=== PATIENT | male | born 1980 | race Caucasian/White ===

== ENCOUNTER 2016-08-27 07:38 | Emergency (ER) | payer SELFPAY ==
[2016-08-27 07:47] VITALS: PULSE 98
[2016-08-27] MEDS ORDERED: DUONEB 0.5-3 MG/3 ml Neb IH ONE ×3 (07:51→08:15)
--- NOTE | 2016-08-27 07:55 | ERPHSYRPT ---
- History of Present Illness Time Seen by Provider: 08/27/16 07:51 Source: patient Exam Limitations: no limitations Patient Subjective Stated Complaint: states that he has had productive cough over the last few days that is so forceful it is causing vomiting - denies pain Triage Nursing Assessment: ambulatory to treatment Physician History: This 36-year-old white male with history of depression and neuropathy arrives with complaint of a cough for 2 days. He is not having any fevers no nausea no vomiting he is coughing up yellow sputum. Past medical history includes depression neuropathy. Social history positive for tobacco use. Timing/Duration: day(s) Cough Quality/Degree: productive cough Possible Cause: no prior episodes Modifying Factors: Improves With: nothing Associated Symptoms: cough, facial pain, No fever, No chills, No chest pain/ soreness, No dizziness, No earache, No muscle aches, No nasal drainage, No shortness of breath International travel in last 2 weeks: No Allergies/Adverse Reactions: No Known Drug Allergies Allergy (Verified 08/27/16 07:43) Home Medications: Tramadol HCl 50 mg [Ultram 50 mg] 50 mg PO QID 08/27/16 [History] Hx Tetanus, Diphtheria Vaccination/Date Given: No Hx Influenza Vaccination/Date Given: No Hx Pneumococcal Vaccination/Date Given: No Immunizations Up to Date: Yes - Review of Systems Constitutional: No Fever, No Chills Eyes: No Symptoms Ears, Nose, & Throat: No Symptoms Respiratory: Cough, No Cyanosis, No Dyspnea, No Dyspnea on Exertion (EARL), No Stridor, No Wheezing Cardiac: No Chest Pain, No Edema, No Syncope Abdominal/Gastrointestinal: No Abdominal Pain, No Nausea, No Vomiting, No Diarrhea Genitourinary Symptoms: No Dysuria Musculoskeletal: No Back Pain, No Neck Pain Skin: No Rash Neurological: No Dizziness, No Focal Weakness, No Sensory Changes Psychological: No Symptoms Endocrine: No Symptoms All Other Systems: Reviewed and Negative - Past Medical History Pertinent Past Medical History: Yes Neurological History: No Pertinent History ENT History: No Pertinent History Cardiac History: No Pertinent History Respiratory History: No Pertinent History Endocrine Medical History: No Pertinent History Musculoskeletal History: No Pertinent History GI Medical History: No Pertinent History History: No Pertinent History Psycho-Social History: Depression Male Reproductive Disorders: No Pertinent History Other Medical History: Neuropathy - Past Surgical History Past Surgical History: No Neuro Surgical History: No Pertinent History Cardiac: No Pertinent History Respiratory: No Pertinent History Gastrointestinal: No Pertinent History Genitourinary: No Pertinent History Musculoskeletal: No Pertinent History Male Surgical History: No Pertinent History - Social History Smoking Status: Current every day smoker How long have you smoked: 15 Exposure to second hand smoke: No Drug Use: none Patient Lives Alone: No - Nursing Vital Signs Nursing Vital Signs: Initial Vital Signs Temperature 98.5 F Temperature Source Oral Pulse Rate 98 Respiratory Rate 16 Blood Pressure [] 129/77 Pain Intensity 0 - Physical Exam General Appearance: mild distress Eye Exam: PERRL/EOMI, eyes nml inspection Ears, Nose, Throat Exam: normal ENT inspection, TMs normal, pharynx normal, moist mucous membranes Neck Exam: normal inspection, non-tender, supple, full range of motion Respiratory Exam: diminished breath sounds, No chest tenderness Cardiovascular Exam: regular rate/rhythm, normal heart sounds Gastrointestinal/Abdomen Exam: soft, No tenderness Back Exam: normal inspection, No CVA tenderness, No vertebral tenderness Extremity Exam: normal inspection, normal range of motion Neurologic Exam: alert, oriented x 3, cooperative, normal mood/affect, sensation nml, No motor deficits Skin Exam: normal color, warm, dry, No rash Lymphatic Exam: No adenopathy SpO2 Interpretation: normal (9C9) SpO2: 99 Oxygen Delivery: Room Air - Course Nursing assessment & vital signs reviewed: Yes - Radiology Exams Chest X-ray Interpretation: Discussed w/ radiologist, Negative, No Pneumonia, No Pneumothorax Ordered Tests: Active Orders 24 hr Category Date Time Status EKG-ER Only STAT Care 08/27/16 07:59 Inactive IV Insertion STAT Care 08/27/16 07:59 Inactive Oxygen-ED Only NASAL CANNULA 4 lpm Care 08/27/16 07:59 Inactive CHEST 1 VIEW (PORTABLE) Stat Exams 08/27/16 07:51 Completed CBC W DIFF Stat Lab 08/27/16 07:59 Stop Req CMP Stat Lab 08/27/16 07:59 Stop Req TROPONIN Stat Lab 08/27/16 08:01 Ordered VENOUS BLOOD GAS Urgent Lab 08/27/16 07:59 Stop Req Respiratory Nebulizer STAT RT 08/27/16 08:04 Completed Medication Summary Discontinued Medications Generic Name Dose Route Start Last Admin Trade Name Freq PRN Reason Stop Dose Admin Albuterol/Ipratropium 3 ml 08/27/16 07:51 08/27/16 08:23 Duoneb 0.5-3 Mg/3 Ml Neb IH 08/27/16 07:52 3 ml STAT ONE Administration Albuterol/Ipratropium 3 ml 08/27/16 08:04 08/27/16 08:08 Duoneb 0.5-3 Mg/3 Ml Neb IH 08/27/16 08:05 Not Given STAT ONE Albuterol/Ipratropium Confirm 08/27/16 08:15 Duoneb 0.5-3 Mg/3 Ml Neb Administered 08/27/16 08:16 Dose 3 ml IH .STK-MED ONE Methylprednisolone Sodium Succinate 125 mg 08/27/16 07:59 08/27/16 08:04 Solu-Medrol 125 Mg IV 08/27/16 08:00 Not Given STAT ONE - Progress Progress: improved Air Movement: fair Progress Note: 08/27/16 08:38 Patient's chest x-ray no pneumonia is no pneumothorax no acute process noted. Patient better after receiving DuoNeb treatment. Will go ahead and write for tapering dose of prednisone, Zithromax, albuterol inhaler. - Departure Time of Disposition: 08:39 Departure Disposition: Home Clinical Impression: Bronchitis with bronchospasm Condition: Fair Critical Care Time: No Instructions: Cough -- Adult Additional Instructions: Return home. Plenty of fluids. Zithromax [id number] as directed. Tapering dose prednisone as directed. Albuterol inhaler 2 puffs every 4 hours as needed. [id number] cough syrup as needed. Follow-up with your family doctor if symptoms are worse, no better in 48 hours, or persist longer than one week. Stop smoking. Return for acute distress or for severe symptoms Prescriptions: Albuterol Common Canister [Proventil Common Canister] 2 puff IH Q4-6HPRN PRN #1 puff PRN Reason: cough, wheezing Azithromycin 250 mg [Zithromax 250 MG TABLET] 0 mg PO ZPACK #6 tablet
[2016-08-27] MEDS ORDERED: solu-MEDROL 125 MG IV ONE (07:59)
[2016-08-27 08:33] VITALS: BP 129/77
--- NOTE | 2016-08-27 08:35 | XRAY ---
Indication: Cough. Comparison: January 06, 2016 Portable chest again demonstrates normal heart, lungs, and bony thorax.
[2016-08-27 08:36] VITALS: O2SAT 99
== END 2016-08-27 08:51 ==
LOC: ED 07:38
DX: J20.9 Acute bronchitis, unspecified (principal); R05 Cough; F17.200 Nicotine dependence, unspecified, uncomplicated
CPT/HCPCS: 71010; 94640; 99283

== ENCOUNTER 2017-03-28 21:20 | Emergency (ER) | payer SELFPAY ==
[2017-03-28 21:29] VITALS: O2SAT 98
--- NOTE | 2017-03-28 21:42 | ERPHSYRPT ---
- History of Present Illness Time Seen by Provider: 03/28/17 21:24 Source: patient Exam Limitations: no limitations Patient Subjective Stated Complaint: pt states yesterday he was attempting to jump over a ditch, missing the landing, and rolling his left ankle. pt states the pain has progressively increased this evening, states pain is "shooting" up his leg Triage Nursing Assessment: pt is aox3, pupils perrl, ambulatory to cot with a limping gait, resps are easy and non labored, skin is pink warm and dry, swelling is noted to the left distal ankle, pedal pulses are strong and equal bilaterally, cap refill 3 secs,rom is not limited Physician History: Pt. is homeless and has been ambulatory since injury 2 days ago. Method of Injury: twisted Occurred: days ago (2) Quality: constant, sharpness Severity of Pain-Max: moderate Severity of Pain-Current: moderate Modifying Factors: Improves With: movement Associated Symptoms: none Allergies/Adverse Reactions: No Known Drug Allergies Allergy (Verified 03/28/17 21:32) Hx Tetanus, Diphtheria Vaccination/Date Given: No Hx Influenza Vaccination/Date Given: No Hx Pneumococcal Vaccination/Date Given: No Immunizations Up to Date: Yes - Review of Systems Constitutional: No Symptoms Eyes: No Symptoms Ears, Nose, & Throat: No Symptoms Respiratory: No Symptoms Cardiac: No Symptoms Abdominal/Gastrointestinal: No Symptoms Genitourinary Symptoms: No Symptoms Musculoskeletal: Joint Pain, Joint Swelling Skin: No Symptoms Neurological: No Symptoms Psychological: No Symptoms Endocrine: No Symptoms Hematologic/Lymphatic: No Symptoms Immunological/Allergic: No Symptoms - Past Medical History Pertinent Past Medical History: Yes Neurological History: No Pertinent History ENT History: No Pertinent History Cardiac History: No Pertinent History Respiratory History: No Pertinent History Endocrine Medical History: No Pertinent History Musculoskeletal History: No Pertinent History GI Medical History: No Pertinent History History: No Pertinent History Psycho-Social History: Depression Male Reproductive Disorders: No Pertinent History Other Medical History: Neuropathy - Past Surgical History Past Surgical History: No Neuro Surgical History: No Pertinent History Cardiac: No Pertinent History Respiratory: No Pertinent History Gastrointestinal: No Pertinent History Genitourinary: No Pertinent History Musculoskeletal: No Pertinent History Male Surgical History: No Pertinent History - Social History Smoking Status: Current every day smoker How long have you smoked: 15 Exposure to second hand smoke: No Drug Use: none Patient Lives Alone: Yes - Nursing Vital Signs Nursing Vital Signs: Initial Vital Signs Temperature 98.9 F 03/28/17 21:24 Pulse Rate 100 H 03/28/17 21:24 Respiratory Rate 20 03/28/17 21:24 Blood Pressure 144/80 03/28/17 21:24 O2 Sat by Pulse Oximetry 98 03/28/17 21:24 Pain Scale Pain Intensity 10 - Physical Exam General Appearance: mild distress Eyes, Ears, Nose, Throat Exam: normal ENT inspection, pharynx normal Neck Exam: normal inspection, non-tender, supple, full range of motion Cardiovascular/Respiratory Exam: chest non-tender, normal breath sounds, heart sounds normal, no respiratory distress Gastrointestinal/Abdominal Exam: non-tender, soft, no organomegaly Hips Exam: bilateral: non-tender, normal inspection, normal range of motion, no evidence of injury Legs Exam: bilateral leg: non-tender, normal inspection, normal range of motion , no evidence of injury Knees Exam: bilateral knee: non-tender, normal inspection, normal range of motion, no evidence of injury Ankle Exam: right ankle: non-tender, normal inspection, normal range of motion, no evidence of injury, left ankle: bone tenderness, deformity, ecchymosis, joint effusion, limited range of motion, pain, soft tissue tenderness Foot Exam: right foot: non-tender, normal inspection, normal range of motion, no evidence of injury, left foot: pain, soft tissue tenderness, swelling Neuro/Tendon Exam: normal sensation, normal tendon functions, responds to pain Mental Status Exam: alert, oriented x 3, cooperative Skin Exam: normal color, warm, dry SpO2 Interpretation: normal SpO2: 98 Oxygen Delivery: Room Air - Course Nursing assessment & vital signs reviewed: Yes - Radiology Exams Ankle X-ray Interpretation: Interpreted by me, Reviewed by me, Other (chips noted distal to fibula only in 1/3 images. May be ligamentous, but will place in boot and F/U Ortho.) Ordered Tests: Active Orders 24 hr Category Date Time Status Ice Pack, Apply PRN Care 03/28/17 21:25 Active ANKLE (3 VIEWS) Stat Exams 03/28/17 Taken - Progress Progress: improved Discussed with : Susanne Will see patient in: office (Ortho 1 week) Counseled pt/family regarding: diagnosis, need for follow-up, rad results - Departure Time of Disposition: 22:00 Departure Disposition: Home Clinical Impression: Sprained ankle Qualifiers: Encounter type: initial encounter Involved ligament of ankle: tibiofibular ligament Laterality: left Qualified Code(s): S93.432A - Sprain of tibiofibular ligament of left ankle, initial encounter Condition: Stable Critical Care Time: No Referrals: LIBAN GANN [Primary Care Provider] -
[2017-03-28] MEDS ORDERED: Naprosyn 500 MG PO ONE (22:07)
[2017-03-28 22:49] VITALS: BP 136/80; PULSE 80
--- NOTE | 2017-03-29 09:17 | XRAY ---
Indication: Pain following injury. Comparison: None 3 views of the left ankle demonstrates 2 small irregular ossifications interposed between the lateral malleolus and talus with adjacent soft tissue swelling concerning for avulsion fracture. No other bony, articular, or soft tissue abnormalities.
== END 2017-03-28 22:52 | disposition home or self-care (01) ==
LOC: ED 21:20
DX: S93.432A Sprain of tibiofibular ligament of left ankle, initial encounter (principal); X50.0XXA Overexertion from strenuous movement or load, initial encounter
CPT/HCPCS: 73610; 99283; L4386; A9270-GY

== ENCOUNTER 2019-01-27 12:58 | Emergency (ER) | payer MEDICAID ==
[2019-01-27 13:07] VITALS: BP 136/77; PULSE 85; O2SAT 97
[2019-01-27] MEDS ORDERED: Adacel Vial IM ONE ×2 (13:16→13:23)
[2019-01-27] MEDS ORDERED: BACIGUENT PACKET TP ONE (13:16)
[2019-01-27] MEDS ORDERED: XYLOCAINE 1% HCL 20 ML MDV IJ ONE (13:19)
--- NOTE | 2019-01-27 13:20 | ERPHSYRPT ---
- History of Present Illness Time Seen by Provider: 01/27/19 13:09 Source: patient Exam Limitations: no limitations Patient Subjective Stated Complaint: pt states "I was working on something of mine on my lunch hour and it came up and hit me in the face." Triage Nursing Assessment: Pt presented alert and oriented X 3, skin pwd. PT ambulates with an upright steady gait, able to speak in clear full sentences. Pt has laceration noted to right eyebrow, bleeding controlled. Physician History: 38-year-old white male arrives with complaint of laceration to his right supraorbital ridge since approximately 1220 this afternoon. According to the patient he was working on the lawn more he was struck in the face with the plastic portion will pull start to a lawnmower. He denies any loss of consciousness. Denies any vision problems no other problems. past medical history includes depression. Past surgical history negative Social history includes tobacco and occasional alcohol use . Timing/Duration: today Severity: mild Modifying Factors: Improves With: nothing Associated Symptoms: other (laceration right supraorbital ridge), No nausea, No vomiting, No abdominal pain, No shortness of breath, No heartburn, No diaphoresis, No cough, No chills, No chest pain, No fever, No headaches, No loss of appetite, No malaise, No rash, No syncope, No seizure, No weakness Allergies/Adverse Reactions: No Known Drug Allergies Allergy (Verified 03/28/17 21:32) Home Medications: Buprenorphine HCl/Naloxone HCl [Buprenorphin-Naloxon 8-2 mg Sl] 1 tab SL DAILY 01/27/19 [History] Hx Tetanus, Diphtheria Vaccination/Date Given: No Hx Influenza Vaccination/Date Given: Yes Hx Pneumococcal Vaccination/Date Given: Yes Immunizations Up to Date: Yes - Review of Systems Constitutional: No Fever, No Chills Eyes: Other (laceration right supraorbital ridge), No Eye Pain, No Photophobia, No Tearing Respiratory: No Cough, No Dyspnea Cardiac: No Chest Pain, No Edema, No Syncope Abdominal/Gastrointestinal: No Abdominal Pain, No Nausea, No Vomiting, No Diarrhea Genitourinary Symptoms: No Dysuria Musculoskeletal: No Back Pain, No Neck Pain Skin: Other (laceration right supraorbital ridge) Neurological: No Dizziness, No Focal Weakness, No Sensory Changes Psychological: No Symptoms Endocrine: No Symptoms All Other Systems: Reviewed and Negative - Past Medical History Pertinent Past Medical History: Yes Neurological History: No Pertinent History ENT History: No Pertinent History Cardiac History: No Pertinent History Respiratory History: No Pertinent History Endocrine Medical History: No Pertinent History Musculoskeletal History: No Pertinent History GI Medical History: No Pertinent History History: No Pertinent History Psycho-Social History: Depression Male Reproductive Disorders: No Pertinent History Other Medical History: Neuropathy - Past Surgical History Past Surgical History: No Neuro Surgical History: No Pertinent History Cardiac: No Pertinent History Respiratory: No Pertinent History Gastrointestinal: No Pertinent History Genitourinary: No Pertinent History Musculoskeletal: No Pertinent History Male Surgical History: No Pertinent History - Social History Smoking Status: Current every day smoker How long have you smoked: years Exposure to second hand smoke: Yes Drug Use: none Patient Lives Alone: Yes - Nursing Vital Signs Nursing Vital Signs: Initial Vital Signs Temperature 97.8 F 01/27/19 13:02 Pulse Rate 85 01/27/19 13:02 Respiratory Rate 16 01/27/19 13:02 Blood Pressure 136/77 01/27/19 13:02 O2 Sat by Pulse Oximetry 97 01/27/19 13:02 Pain Scale Pain Intensity 1 - Physical Exam General Appearance: no apparent distress, alert Eye Exam: PERRL/EOMI, eyes nml inspection, other (fundi unremarkable) Ears, Nose, Throat Exam: normal ENT inspection, TMs normal, pharynx normal, moist mucous membranes Neck Exam: normal inspection, non-tender, supple, full range of motion Respiratory Exam: normal breath sounds, lungs clear, No respiratory distress Cardiovascular Exam: regular rate/rhythm, normal heart sounds, normal peripheral pulses, capillary refill <2 sec Gastrointestinal/Abdomen Exam: soft, normal bowel sounds, No tenderness, No mass Back Exam: normal inspection, normal range of motion, No CVA tenderness, No vertebral tenderness Extremity Exam: normal inspection, normal range of motion, pelvis stable Neurologic Exam: alert, oriented x 3, cooperative, digital asset manager II-XII nml as tested, normal mood/affect, nml cerebellar function, nml station & gait, sensation nml, No motor deficits Skin Exam: other (2 cm laceration right supraorbital ridge) SpO2 Interpretation: normal (97%) SpO2: 97 - Course Nursing assessment & vital signs reviewed: Yes Ordered Tests: Active Orders 24 hr Category Date Time Status Prepare for Sutures STAT Care 01/27/19 13:16 Active Sutures STAT Care 01/27/19 13:17 Active Wound Care STAT Care 01/27/19 13:16 Active Medication Summary Discontinued Medications Generic Name Dose Route Start Last Admin Trade Name Loc PRN Reason Stop Dose Admin Bacitracin Zinc 0.9 gm 01/27/19 13:16 01/27/19 13:28 Baciguent Packet TP 01/27/19 13:17 0.9 gm STAT ONE Administration Bacitracin Zinc Confirm 01/27/19 13:23 Baciguent Packet Administered 01/27/19 13:24 Dose 1 gm .ROUTE .STK-MED ONE Diphtheria/Tetanus/Acell Pertussis 0.5 ml 01/27/19 13:16 01/27/19 13:27 Adacel Vial IM 01/27/19 13:17 0.5 ml .ONCE ONE Administration Diphtheria/Tetanus/Acell Pertussis Confirm 01/27/19 13:23 Adacel Vial Administered 01/27/19 13:24 Dose 0.5 ml IM .STK-MED ONE Lidocaine HCl 5 ml 01/27/19 13:19 01/27/19 13:28 Xylocaine 1% Hcl 20 Ml Mdv IJ 01/27/19 13:20 5 ml STAT ONE Administration Lidocaine HCl Confirm 01/27/19 13:23 Xylocaine 1% Hcl 20 Ml Mdv Administered 01/27/19 13:24 Dose 5 ml .ROUTE .STK-MED ONE - Progress Progress: improved Progress Note: 01/27/19 13:31 Laceration repair: 2 cm laceration right supraorbital ridge. Laceration sterilely prepped and draped, anesthetized with 1% lidocaine. Laceration inspected no foreign bodies are noted. Laceration sutured with 3 5.0 Prolene sutures (interrupted). Bacitracin applied by the nurse. DTaP given to patient by patient's nurse. - Departure Departure Disposition: Home Clinical Impression: Facial laceration Qualifiers: Encounter type: initial encounter Qualified Code(s): S01.81XA - Laceration without foreign body of other part of head, initial encounter Condition: Fair Critical Care Time: No Referrals: LIBAN GANN [Primary Care Provider] - Instructions: Laceration Repair With Stitches (DC) Additional Instructions: Return home. Keep area clean and dry. Bacitracin to area until healed. Sutures out in 5 days. Followup with your family DrLizandro or return if signs of infection or problems. Return for acute distress or for severe symptoms.
[2019-01-27] MEDS ORDERED: BACIGUENT PACKET ONE (13:23)
[2019-01-27] MEDS ORDERED: XYLOCAINE 1% HCL 20 ML MDV ONE (13:23)
== END 2019-01-27 13:46 | disposition home or self-care (01) ==
LOC: ED 12:58
DX: S01.81XA Laceration without foreign body of other part of head, initial encounter (principal); W20.8XXA Other cause of strike by thrown, projected or falling object, initial encounter; Y93.89 Activity, other specified
CPT/HCPCS: 12011; 90471; 90715; 99284; A9270-GY

== ENCOUNTER 2019-05-30 19:47 | Emergency (ER) | payer MEDICAID ==
[2019-05-30] MEDS ORDERED: TORAdol 30 mg Injection IV ONE (20:14)
[2019-05-30] MEDS ORDERED: BENADRYL 50 MG/ML IV ONE (20:14)
[2019-05-30] MEDS ORDERED: Pepcid 20 MG VIAL IV ONE ×2 (20:14→20:21)
[2019-05-30] MEDS ORDERED: Zofran 4 MG/2 ML VIAL IV ONE (20:14)
[2019-05-30] MEDS ORDERED: Sodium Chloride 0.9% 1000 ML 1,000 ML IV STA ×2 (20:14→21:22)
--- NOTE | 2019-05-30 20:19 | ERPHSYRPT ---
- History of Present Illness Time Seen by Provider: 05/30/19 19:55 Historian: patient, EMS Exam Limitations: no limitations Patient Subjective Stated Complaint: pt states after working today he began having cold sweats, nausea, vomiting and upper, right sided abdominal pain. pt reports he also had two episodes of diarrhea. pt reports he is a recovering addict and takes suboxone daily. Triage Nursing Assessment: pt is aox3, pupils perrl, pt appears flushed, diaphoretic, afebrile, resps easy and non labored, radial pulses strong and equal, cap refill < 3 seconds, tenderness with palpation to the RUQ, abdomen is soft, bowel sounds present and normoactive x 4. Physician History: Patient had sudden onset of LUQ abdominal pain with nausea and vomiting with two diarrhea episodes. Timing/Duration: today, hour(s) (0.5) Activities at Onset: none Quality: sharpness Abdominal Pain Onset Location: LUQ Pain Radiation: back Severity of Pain-Max: severe Severity of Pain-Current: severe Modifying Factors: Improves With: nothing Associated Symptoms: chest pain (pressure), diarrhea, fever/chills (only chills) , nausea, vomiting, No back, No diaphoresis, No fatigue, No headache, No heartburn, No loss of appetite, No neck pain, No rash, No shortness of breath, No syncope, No testicular pain, No weakness Previous symptoms: no prior history, no recent treatment Allergies/Adverse Reactions: No Known Drug Allergies Allergy (Verified 05/30/19 20:02) Home Medications: Buprenorphine HCl/Naloxone HCl [Buprenorphin-Naloxon 8-2 mg Sl] 1 tab SL DAILY 01/27/19 [History] Hx Tetanus, Diphtheria Vaccination/Date Given: Yes Hx Influenza Vaccination/Date Given: No Hx Pneumococcal Vaccination/Date Given: No Immunizations Up to Date: Yes - Review of Systems Constitutional: Chills, Fatigue, No Fever Eyes: No Eye Pain, No Vision Changes Ears, Nose, & Throat: No Ear Pain, No Mouth Swelling, No Throat Pain, No Throat Swelling Respiratory: No Cough, No Dyspnea Cardiac: Chest Pain (pressure sensation), No Palpitations, No Syncope Abdominal/Gastrointestinal: Abdominal Pain, Nausea, Vomiting, No Diarrhea, No Hematemesis, No Hematochezia, No Melena Genitourinary Symptoms: No Dysuria, No Frequency, No Hematuria, No Flank Pain, No Testicle Pain Musculoskeletal: No Arthralgias, No Back Pain, No Neck Pain, No Joint Swelling Skin: No Pruritis, No Rash Neurological: No Focal Weakness, No Headache, No Lethargy, No Parasthesia, No Speech Changes, No Tremors Psychological: No Anxiety Endocrine: No Polyuria, No Polydipsia, No Excessive Sweating Hematologic/Lymphatic: No Easy Bleeding, No Easy Bruising All Other Systems: Reviewed and Negative - Past Medical History Pertinent Past Medical History: Yes Neurological History: No Pertinent History ENT History: No Pertinent History Cardiac History: No Pertinent History Respiratory History: No Pertinent History Endocrine Medical History: No Pertinent History Musculoskeletal History: No Pertinent History GI Medical History: No Pertinent History History: No Pertinent History Psycho-Social History: Depression Male Reproductive Disorders: No Pertinent History Other Medical History: Neuropathy. drug addict, clean 7 months, taking suboxone - Past Surgical History Past Surgical History: No Neuro Surgical History: No Pertinent History Cardiac: No Pertinent History Respiratory: No Pertinent History Gastrointestinal: No Pertinent History Genitourinary: No Pertinent History Musculoskeletal: No Pertinent History Male Surgical History: No Pertinent History - Social History Smoking Status: Current every day smoker How long have you smoked: years Exposure to second hand smoke: Yes Drug Use: none Patient Lives Alone: Yes - Nursing Vital Signs Nursing Vital Signs: Initial Vital Signs Temperature 97.3 F 05/30/19 19:48 Pulse Rate 87 05/30/19 19:48 Respiratory Rate 18 05/30/19 19:48 Blood Pressure 131/84 05/30/19 19:48 O2 Sat by Pulse Oximetry 99 05/30/19 19:48 Pain Scale Pain Intensity 5 - Physical Exam General Appearance: no apparent distress, alert Eye Exam: PERRL/EOMI, eyes nml inspection, No scleral icterus Ears, Nose, Throat Exam: pharynx normal, moist mucous membranes Neck Exam: normal inspection, non-tender, supple, full range of motion, No meningismus, No Brudzinski, No lymphadenopathy, No midline tenderness Respiratory Exam: normal breath sounds, lungs clear, airway intact, prolonged expirations, No chest tenderness, No respiratory distress, No diminished breath sounds, No accessory muscle use, No crackles/rales, No rhonchi, No wheezing, No stridor Cardiovascular Exam: regular rate/rhythm, normal heart sounds, normal peripheral pulses, capillary refill <2 sec Gastrointestinal/Abdomen Exam: soft, normal bowel sounds, tenderness (LUQ), No distention, No mass, No rebound Back Exam: normal inspection, normal range of motion, No CVA tenderness, No vertebral tenderness, No rash Extremity Exam: normal inspection, normal range of motion, pelvis stable, No deformities, No inflammation Neurologic Exam: alert, oriented x 3, cooperative, normal mood/affect, sensation nml Skin Exam: normal color, warm, dry, No rash, No petechiae, No jaundice, No cyanosis SpO2 Interpretation: normal SpO2: 99 O2 Delivery: Room Air - Course Nursing assessment & vital signs reviewed: Yes EKG Interpreted by Me: RATE (91), Sinus Rhythm, NORMAL AXIS, NORMAL INTERVALS, NORMAL QRS, NORMAL ST-T, Other (negative previous EKG for comparison) - Radiology Exams Chest X-ray Interpretation: Interpreted by me, Reviewed by me, Negative, No Fracture, No Pneumonia, No Pneumothorax, No Infiltrates, Nml Mediastinum - CT Exams Abdomen/Pelvis CT Interpretation: Other (Per Radiologist Interpretation: Free Fluid in the LUQ , RUQ, RLQ suggesting hemoperiteum vs complicated inflammatory fluid; moderate bowel wall thickening in the left colon consistent with colitis caused by infectious, microvascular or inflammatory/autoimmune; jejunal bowel wall thickening) Ordered Tests: Active Orders 24 hr Category Date Time Status EKG-ER Only STAT Care 05/30/19 20:05 Active IV Insertion STAT Care 05/30/19 20:14 Active NPO (ED) STAT Care 05/30/19 20:14 Active ABDOMEN AND PELVIS W CONTRAST [CT] Stat Exams 05/30/19 21:34 Taken CHEST 1 VIEW (PORTABLE) Stat Exams 05/30/19 20:15 Taken AMYLASE Stat Lab 05/30/19 20:40 Completed CBC W DIFF Stat Lab 05/30/19 20:40 Completed CMP Stat Lab 05/30/19 20:40 Completed LIPASE Stat Lab 05/30/19 20:40 Completed Lactic Acid Stat Lab 05/30/19 20:32 Completed Lactic Acid Stat Lab 05/30/19 23:23 Completed Manual Differential NC Stat Lab 05/30/19 20:40 Completed TROPONIN Q3H Lab 05/30/19 20:40 Completed TROPONIN Q3H Lab 05/30/19 23:22 Completed TROPONIN Q3H Lab 05/31/19 02:15 Ordered TROPONIN Q3H Lab 05/31/19 05:15 Ordered TROPONIN Q3H Lab 05/31/19 08:15 Ordered UA W/RFX UR CULTURE Stat Lab 05/30/19 23:08 Completed Urine Triage Profile Stat Lab 05/30/19 23:08 Completed Medication Summary Discontinued Medications Generic Name Dose Route Start Last Admin Trade Name Nixonq PRN Reason Stop Dose Admin Diphenhydramine HCl 50 mg 05/30/19 20:14 05/30/19 20:24 Benadryl 50 Mg/Ml IV 05/30/19 20:15 50 mg STAT ONE Administration Diphenhydramine HCl Confirm 05/30/19 20:21 Benadryl 50 Mg/Ml Administered 05/30/19 20:22 Dose 50 mg .ROUTE .STK-MED ONE Famotidine 20 mg 05/30/19 20:14 05/30/19 20:23 Pepcid 20 Mg Vial IV 05/30/19 20:15 20 mg STAT ONE Administration Famotidine Confirm 05/30/19 20:21 Pepcid 20 Mg Vial Administered 05/30/19 20:22 Dose 20 mg IV .STK-MED ONE Sodium Chloride 1,000 mls @ 999 mls/hr 05/30/19 20:14 05/30/19 21:31 Sodium Chloride 0.9% 1000 Ml IV 05/30/19 21:14 Infused .Q1H1M STA Infusion Sodium Chloride Confirm 05/30/19 20:21 Sodium Chloride 0.9% 1000 Ml Administered 05/30/19 20:22 Dose 1,000 mls @ ud .ROUTE .STK-MED ONE Sodium Chloride 1,000 mls @ 999 mls/hr 05/30/19 21:22 05/30/19 21:30 Sodium Chloride 0.9% 1000 Ml IV 05/30/19 22:22 999 mls/hr .Q1H1M STA Administration Sodium Chloride Confirm 05/30/19 21:28 Sodium Chloride 0.9% 1000 Ml Administered 05/30/19 21:29 Dose 1,000 mls @ ud .ROUTE .STK-MED ONE Ketorolac Tromethamine 30 mg 05/30/19 20:14 05/30/19 20:23 Toradol 30 Mg Injection IV 05/30/19 20:15 30 mg STAT ONE Administration Ketorolac Tromethamine Confirm 05/30/19 20:21 Toradol 30 Mg Injection Administered 05/30/19 20:22 Dose 30 mg .ROUTE .STK-MED ONE Ondansetron HCl 4 mg 05/30/19 20:14 05/30/19 20:23 Zofran 4 Mg/2 Ml Vial IV 05/30/19 20:15 4 mg STAT ONE Administration Ondansetron HCl Confirm 05/30/19 20:21 Zofran 4 Mg/2 Ml Vial Administered 05/30/19 20:22 Dose 4 mg .ROUTE .STK-MED ONE Lab/Rad Data: Laboratory Result Diagrams 05/30/19 20:40 05/30/19 20:40 Laboratory Results 05/30/19 05/30/19 05/30/19 Range/Units 23:23 23:22 23:08 WBC (4.0-10.5) K/mm3 RBC (4.1-5.6) M/mm3 Hgb (12.5-18.0) gm/dl Hct (42-50) % MCV (78-100) fl MCH (26-32) pg MCHC (32-36) g/dl RDW (11.5-14.0) % Plt Count (150-450) K/mm3 MPV (6-9.5) fl Absolute Granulocytes (1.4-6.9) Segmented Neutrophils (36.-66.) % Lymphocytes (Manual) (24-44) % Monocytes (Manual) (0.0-12.0) % Platelet Estimate (NORMAL) RBC Morphology Sodium (137-145) mmol/L Potassium (3.5-5.1) mmol/L Chloride (98-107) mmol/L Carbon Dioxide (22-30) mmol/L Anion Gap (5-15) MEQ/L BUN (9-20) mg/dL Creatinine (0.66-1.25) mg/dL Estimated GFR ML/MIN Glucose (74-106) mg/dL Lactic Acid 1.0 (0.4-2.0) Calcium (8.4-10.2) mg/dL Total Bilirubin (0.2-1.3) mg/dL AST (17-59) U/L ALT (0-50) U/L Alkaline Phosphatase (38-126) U/L Troponin I 0.024 (0.000-0.034) ng/mL Serum Total Protein (6.3-8.2) g/dL Albumin (3.5-5.0) g/dL Amylase (30-110) U/L Lipase (23-300) U/L Urine Color (YELLOW) Urine Appearance (CLEAR) Urine pH (5-6) Ur Specific [place] (1.005-1.025) Urine Protein (Negative) Urine Ketones (NEGATIVE) Urine Blood (0-5) Edgard/ul Urine Nitrite (NEGATIVE) Urine Bilirubin (NEGATIVE) Urine Urobilinogen (0-1) mg/dL Ur Leukocyte Esterase (NEGATIVE) Urine WBC (Auto) (0-5) /HPF Urine RBC (Auto) (0-2) /HPF U Hyaline Cast (Auto) (0-2) /LPF U Epithel Cells (Auto) (FEW) /HPF Urine Bacteria (Auto) (NEGATIVE) /HPF Urine Mucus (Auto) (NEGATIVE) /HPF Urine Culture Reflexed (NO) Urine Glucose (NEGATIVE) mg/dL Urine Opiates Level NEGATIVE (NEGATIVE) Ur Methadone NEGATIVE (NEGATIVE) Urine Barbiturates NEGATIVE (NEGATIVE) Ur Phencyclidine (PCP) NEGATIVE (NEGATIVE) Urine Amphetamine NEGATIVE (NEGATIVE) U Benzodiazepine Level NEGATIVE (NEGATIVE) Urine Cocaine NEGATIVE (NEGATIVE) Urine Marijuana (THC) NEGATIVE (NEGATIVE) 05/30/19 05/30/19 05/30/19 Range/Units 23:08 20:40 20:40 WBC (4.0-10.5) K/mm3 RBC (4.1-5.6) M/mm3 Hgb (12.5-18.0) gm/dl Hct (42-50) % MCV (78-100) fl MCH (26-32) pg MCHC (32-36) g/dl RDW (11.5-14.0) % Plt Count (150-450) K/mm3 MPV (6-9.5) fl Absolute Granulocytes (1.4-6.9) Segmented Neutrophils (36.-66.) % Lymphocytes (Manual) (24-44) % Monocytes (Manual) (0.0-12.0) % Platelet Estimate (NORMAL) RBC Morphology Sodium 142 (137-145) mmol/L Potassium 3.9 (3.5-5.1) mmol/L Chloride 101 (98-107) mmol/L Carbon Dioxide 28 (22-30) mmol/L Anion Gap 16.6 H (5-15) MEQ/L BUN 18 (9-20) mg/dL Creatinine 1.11 (0.66-1.25) mg/dL Estimated GFR > 60.0 ML/MIN Glucose 140 H (74-106) mg/dL Lactic Acid (0.4-2.0) Calcium 9.6 (8.4-10.2) mg/dL Total Bilirubin 0.50 (0.2-1.3) mg/dL AST 35 (17-59) U/L ALT 20 (0-50) U/L Alkaline Phosphatase 67 (38-126) U/L Troponin I < 0.012 (0.000-0.034) ng/mL Serum Total Protein 8.3 H (6.3-8.2) g/dL Albumin 4.5 (3.5-5.0) g/dL Amylase 94 (30-110) U/L Lipase 104 (23-300) U/L Urine Color YELLOW (YELLOW) Urine Appearance CLEAR (CLEAR) Urine pH 5.0 (5-6) Ur Specific [place] 1.055 (1.005-1.025) Urine Protein NEGATIVE (Negative) Urine Ketones NEGATIVE (NEGATIVE) Urine Blood NEGATIVE (0-5) Edgard/ul Urine Nitrite NEGATIVE (NEGATIVE) Urine Bilirubin NEGATIVE (NEGATIVE) Urine Urobilinogen NEGATIVE (0-1) mg/dL Ur Leukocyte Esterase NEGATIVE (NEGATIVE) Urine WBC (Auto) 3-5 (0-5) /HPF Urine RBC (Auto) NONE (0-2) /HPF U Hyaline Cast (Auto) 0-2 (0-2) /LPF U Epithel Cells (Auto) NONE (FEW) /HPF Urine Bacteria (Auto) NONE (NEGATIVE) /HPF Urine Mucus (Auto) SLIGHT (NEGATIVE) /HPF Urine Culture Reflexed NO (NO) Urine Glucose NEGATIVE (NEGATIVE) mg/dL Urine Opiates Level (NEGATIVE) Ur Methadone (NEGATIVE) Urine Barbiturates (NEGATIVE) Ur Phencyclidine (PCP) (NEGATIVE) Urine Amphetamine (NEGATIVE) U Benzodiazepine Level (NEGATIVE) Urine Cocaine (NEGATIVE) Urine Marijuana (THC) (NEGATIVE) 10/28/19 10/28/19 Range/Units 20:40 20:32 WBC 24.4 H (4.0-10.5) K/mm3 RBC 6.94 H* (4.1-5.6) M/mm3 Hgb 19.9 H (12.5-18.0) gm/dl Hct 58.8 H (42-50) % MCV 84.7 (78-100) fl MCH 28.6 (26-32) pg MCHC 33.8 (32-36) g/dl RDW 16.4 H (11.5-14.0) % Plt Count 309 (150-450) K/mm3 MPV 11.6 H (6-9.5) fl Absolute Granulocytes 19.98 H (1.4-6.9) Segmented Neutrophils 82 H (36.-66.) % Lymphocytes (Manual) 16 L (24-44) % Monocytes (Manual) 2 (0.0-12.0) % Platelet Estimate NORMAL (NORMAL) RBC Morphology NORMAL Sodium (137-145) mmol/L Potassium (3.5-5.1) mmol/L Chloride (98-107) mmol/L Carbon Dioxide (22-30) mmol/L Anion Gap (5-15) MEQ/L BUN (9-20) mg/dL Creatinine (0.66-1.25) mg/dL Estimated GFR ML/MIN Glucose (74-106) mg/dL Lactic Acid 2.4 H (0.4-2.0) Calcium (8.4-10.2) mg/dL Total Bilirubin (0.2-1.3) mg/dL AST (17-59) U/L ALT (0-50) U/L Alkaline Phosphatase (38-126) U/L Troponin I (0.000-0.034) ng/mL Serum Total Protein (6.3-8.2) g/dL Albumin (3.5-5.0) g/dL Amylase (30-110) U/L Lipase (23-300) U/L Urine Color (YELLOW) Urine Appearance (CLEAR) Urine pH (5-6) Ur Specific [place] (1.005-1.025) Urine Protein (Negative) Urine Ketones (NEGATIVE) Urine Blood (0-5) Edgard/ul Urine Nitrite (NEGATIVE) Urine Bilirubin (NEGATIVE) Urine Urobilinogen (0-1) mg/dL Ur Leukocyte Esterase (NEGATIVE) Urine WBC (Auto) (0-5) /HPF Urine RBC (Auto) (0-2) /HPF U Hyaline Cast (Auto) (0-2) /LPF U Epithel Cells (Auto) (FEW) /HPF Urine Bacteria (Auto) (NEGATIVE) /HPF Urine Mucus (Auto) (NEGATIVE) /HPF Urine Culture Reflexed (NO) Urine Glucose (NEGATIVE) mg/dL Urine Opiates Level (NEGATIVE) Ur Methadone (NEGATIVE) Urine Barbiturates (NEGATIVE) Ur Phencyclidine (PCP) (NEGATIVE) Urine Amphetamine (NEGATIVE) U Benzodiazepine Level (NEGATIVE) Urine Cocaine (NEGATIVE) Urine Marijuana (THC) (NEGATIVE) - Progress Progress: improved Progress Note: 05/30/19 21:20 pain and vomiting have resolved 05/30/19 23:00 Patient is feeling much better with no further vomiting or abdominal pain 05/30/19 23:45 Discussed the patient and his lab and CT scan results with Dr Gann, patient's physician. Dr Gann recommends referring to [facility] due to the complexity of the free fluids and inflammation in his abdomen to multiple areas, as no specialists such as GI are present here at [facility]. 05/31/19 00:[address] Haung, [facility] Emergency Department Attending. Dr Huang accepted the patient for transfer Discussed with Dr.: Other (Dr Huang, [facility] Emergency Department Attending) Counseled pt/family regarding: lab results, diagnosis, need for follow-up, rad results - Departure Departure Disposition: In-patient Admission, Transfer ([facility]) Clinical Impression: Colitis, Jejunitis, LUQ abdominal pain, Abdominal fluid collection, Elevated blood pressure reading without diagnosis of hypertension Nausea and vomiting Qualifiers: Vomiting type: unspecified Vomiting Intractability: non-intractable Qualified Code(s): R11.2 - Nausea with vomiting, unspecified Condition: Fair Critical Care Time: No Referrals: LIBAN GANN [Primary Care Provider] -
[2019-05-30] MEDS ORDERED: TORAdol 30 mg Injection ONE (20:21)
[2019-05-30] MEDS ORDERED: Zofran 4 MG/2 ML VIAL ONE (20:21)
[2019-05-30] MEDS ORDERED: BENADRYL 50 MG/ML ONE (20:21)
[2019-05-30] MEDS ORDERED: Sodium Chloride 0.9% 1000 ML 1,000 ML ONE ×2 (20:21→21:28)
[2019-05-30 20:35] LABS: Lactic Acid 2.4 (0.4-2.0)
[2019-05-30 20:59] LABS: ALBUMIN 4.5 g/dL (3.5-5.0); ALKALINE PHOSPHATASE 67 U/L (38-126); AMYLASE 94 U/L (30-110); ANION GAP 16.6 MEQ/L (5-15); BLOOD UREA NITROGEN 18 mg/dL (9-20); CHLORIDE 101 mmol/L (98-107); Calcium 9.6 mg/dL (8.4-10.2); Carbon Dioxide 28 mmol/L (22-30); Creatinine 1 1.11 mg/dL (0.66-1.25); Glucose 140 mg/dL (74-106); LIPASE 104 U/L (23-300); Potassium 3.9 mmol/L (3.5-5.1); SGOT/AST 35 U/L (17-59); SGPT/ALT 20 U/L (0-50); SODIUM 142 mmol/L (137-145); Total Protein 8.3 g/dL (6.3-8.2)
[2019-05-30 21:09] LABS: Hematocrit 58.8 % (42-50); Hemoglobin 19.9 gm/dl (12.5-18.0); Mean Cell Volume 84.7 fl (78-100); Mean Corpuscular Hgb Concent. 33.8 g/dl (32-36); Mean Platelet Volume 11.6 fl (6-9.5); Platelet Count 309 K/mm3 (150-450); Red Blood Count 6.94 M/mm3 (4.1-5.6); Red Cell Distribution Width 16.4 % (11.5-14.0); White Blood Count 24.4 K/mm3 (4.0-10.5)
[2019-05-30 21:11] LABS: Mean Corpuscular Hemoglobin 28.6 pg (26-32)
[2019-05-30 22:25] LABS: Absolute Neutrophil Ct (ANC) 19.98 (1.4-6.9); Lymphocytes 16 % (24-44); Monocyte 2 % (0.0-12.0); Neutrophils 82 % (36.-66.); Platelet Estimate NORMAL (NORMAL); Total Cells Counted 100
[2019-05-30 23:26] LABS: Appearance CLEAR (CLEAR); Bilirubin NEGATIVE (NEGATIVE); Blood NEGATIVE Ery/ul (0-5); Glucose NEGATIVE (NEGATIVE); Hyaline Casts 0-2 /LPF (0-2); Ketones NEGATIVE (NEGATIVE); Leukocyte Esterase NEGATIVE (NEGATIVE); Mucus SLIGHT /HPF (NEGATIVE); Nitrite NEGATIVE (NEGATIVE); Protein,Urine Dip NEGATIVE (Negative); Specific Gravity 1.055 (1.005-1.025); Urobilinogen NEGATIVE mg/dL (0-1)
[2019-05-30 23:27] LABS: Amphetamine,Urine NEGATIVE (NEGATIVE); Barbiturate,Urine NEGATIVE (NEGATIVE); Benzodiazepine,Urine NEGATIVE (NEGATIVE); Cocaine,Urine NEGATIVE (NEGATIVE); Methadone,Urine NEGATIVE (NEGATIVE); Opiate,Urine NEGATIVE (NEGATIVE); PCP,Urine NEGATIVE (NEGATIVE); THC,Urine NEGATIVE (NEGATIVE)
[2019-05-31 00:12] VITALS: BP 124/74; PULSE 78
[2019-05-31 00:17] VITALS: O2SAT 99
--- NOTE | 2019-05-31 09:04 | XRAY ---
Indication: Upper abdomen pain, chest pressure, and emesis. Elevated WBC and RBC. Multiple contiguous axial images obtained through the abdomen and pelvis using 80 cc Isovue 370 contrast only. Comparison: January 07, 2016. Lung bases demonstrates mild bilateral dependent atelectasis. No infiltrate or effusion. Heart is not enlarged. Stomach is mildly fluid distended with mild wall thickening/enhancement. Small and large bowel loops also demonstrates abnormal bowel wall thickening/enhancement with stranding greatest the left abdomen. Above findings favor gastroenterocolitis. Left hemicolon and sigmoid are mildly fluid distended favoring diarrhea. Small perihepatic, perisplenic, and right lower quadrant free fluid presumed reactive. No walled off fluid collection or free air. Normal appendix. Again anatomic variant for annular pancreas and 5 mm left renal cyst. Remaining liver, gallbladder, spleen, adrenal glands, kidneys, ureters, and bladder appear unremarkable. No AAA or pathologic retroperitoneal lymphadenopathy. Osseous structures intact. Impression: 1. Abnormal GI system as detailed favoring gastroenterocolitis with diarrhea. Small free fluid presumed reactive. 2. Stable incidental annular pancreas and tiny left renal cyst. Comment: Preliminary interpretation was made by [facility]. No critical discrepancy. CTDI is 22.78
--- NOTE | 2019-05-31 09:04 | XRAY ---
Indication: Chest pressure, diaphoresis, and upper abdomen pain. Comparison: January 25, 2017. Portable chest again demonstrates normal heart, lungs, and bony thorax.
== END 2019-05-31 00:35 | disposition short-term general hospital (02) ==
LOC: ED 19:47
DX: R11.2 Nausea with vomiting, unspecified (principal); K52.9 Noninfective gastroenteritis and colitis, unspecified; R10.32 Left lower quadrant pain; R10.12 Left upper quadrant pain; R18.8 Other ascites; R03.0 Elevated blood-pressure reading, without diagnosis of hypertension; R19.7 Diarrhea, unspecified
CPT/HCPCS: 36415; 71045; 74177; 80053; 80307; 81001; 82150; 83605; 83690; 84484; 85025; 93005; 96360; 96361; 96374; 96375; 99285; J1200; J1885; J2405

== ENCOUNTER 2023-10-06 05:47 | Day surgery (SDC) | payer BC, OTHER ==
[2023-10-06 07:34] VITALS: RESP 16
[2023-10-06] MEDS ORDERED: Lactated Ringers 1,000 ML IV ONE (07:35)
[2023-10-06] MEDS: Lactated Ringers 1,000 ML IV SCH (07:42)
[2023-10-06] MEDS ORDERED: Versed 2 MG/2 ML Injection ONE (07:51)
[2023-10-06] MEDS ORDERED: DIPRIVAN 200 MG/20 ML IV ONE ×3 (07:51→08:33)
[2023-10-06] MEDS ORDERED: Xylocaine-Mpf 2% 5 Ml Vial ONE (07:51)
[2023-10-06 09:09] VITALS: TEMP 96.1
[2023-10-06 09:23] VITALS: BP 118/80; PULSE 66; O2SAT 98
--- NOTE | 2023-10-06 12:01 | OP ---
SURGERY DATE/TIME: 10/06/2023 0800 PREOPERATIVE DIAGNOSES: 1) Anemia. 2) Rectal bleeding. POSTOPERATIVE DIAGNOSES: 1) Mild gastritis. 2) Internal hemorrhoids. PROCEDURES: 1) Esophagogastroduodenoscopy with cold forceps biopsy. 2) Colonoscopy. SURGEON: Dr. Lucas. ANESTHESIA: Medications given by the anesthesia department. HISTORY: The patient is a 43-year-old white male that was found to be anemic by his primary care provider. The patient was suggested to have endoscopic evaluation. The patient does report that he has been having problems with rectal bleeding for years that he attributes to hemorrhoids. The patient is also on pantoprazole. The patient was felt the need to have endoscopic evaluation. He was appraised of the risks of the procedure including the risk of perforation, phlebitis, untoward reaction to medication, bleeding and missed lesions. The patient verbalized his understanding and desired to have the procedure performed. DESCRIPTION OF PROCEDURE: The patient was placed in left lateral decubitus position. A bite block was placed. Flexible Olympus gastroscope was used to intubate the oropharynx. A view of the larynx was obtained and was essentially normal. The scope was easily introduced in the esophagus which appeared to be normal throughout its length. The stomach was entered where normal gastric rugal folds were seen and these distended nicely with insufflation of air. The scope was passed along the greater curvature of the stomach to the antrum which appeared to be mildly erythematous. The scope was passed through the pylorus and duodenum inspected and found to be mildly erythematous. No erosions or ulcerations were however noted. The scope was withdrawn back to the stomach. A retroflex view was obtained of the lesser curvature, fundus and cardia regions of the stomach and these appeared to be essentially normal. The scope was redirected towards the gastric antrum and biopsies were obtained to rule out the presence of Helicobacter pylori-type organism. The scope was then removed from the patient. Next, a digital rectal examination was performed and revealed normal anal sphincter tone, mild internal hemorrhoids were felt. The prostate was felt to be normal. The flexible Olympus pediatric colonoscope was used to intubate the rectum. A view of the colon was developed sequentially to the cecum. Upon insertion and withdrawal including retroflex view in the rectum was noted essentially normal mucosa other than what appeared to be some blood that was likely coming from the internal hemorrhoids. The scope was removed from the patient who tolerated the procedure well and was sent to OP recovery in good condition. The prep was noted to be fair to poor.
== END 2023-10-06 09:32 | disposition home or self-care (01) ==
LOC: SDC 05:47
PROVIDERS: ATTEND Family Medicine
DX: K29.70 Gastritis, unspecified, without bleeding (principal); D64.9 Anemia, unspecified; K62.5 Hemorrhage of anus and rectum; K64.8 Other hemorrhoids
CPT/HCPCS: J2250; J2704

== ENCOUNTER 2025-03-01 15:37 | Emergency (ER) | payer BC, OTHER ==
[2025-03-01 15:57] VITALS: BP 144/81; PULSE 78; RESP 18; TEMP 96.9
[2025-03-01] MEDS ORDERED: XYLOCAINE 1%/Epi 1:100000 MDV 20 ML ONE (16:08)
--- NOTE | 2025-03-01 16:33 | ERPHSYRPT ---
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 No numbness or tingling distally. Reports mild to moderate pain with palpation in the area of laceration. No injury anywhere else. Allergies/Adverse Reactions: No Known Drug Allergies Allergy (Verified 01/15/25 22:38) Home Medications: Buprenorphine HCl/Naloxone HCl [Buprenorphin-Naloxon 8-2 mg Sl] 8 tab SL TID 01/27/19 [History] PARoxetine HCL [Paxil] 40 mg PO DAILY 10/28/22 [History] Pantoprazole Sodium [Protonix] 40 mg PO DAILY 10/06/23 [History] Metformin HCl 500 mg [Glucophage 500 MG] 500 mg PO DAILY 01/15/25 [History] Hx Tetanus, Diphtheria Vaccination/Date Given: Yes Hx Influenza Vaccination/Date Given: No Hx Pneumococcal Vaccination/Date Given: No Travel Risk - International Travel Have you traveled outside of the country in past 3 weeks: No - Emerging Infectious Disease Are you exhibiting symptoms associated with any current EIDs: No - Review of Systems Constitutional: No Symptoms Ears, Nose, & Throat: No Symptoms Respiratory: No Symptoms Cardiac: No Symptoms Musculoskeletal: Injury Skin: Skin Lesions Neurological: No Symptoms Hematologic/Lymphatic: No Symptoms Immunological/Allergic: No Symptoms - Past Medical History Pertinent Past Medical History: Yes Neurological History: No Pertinent History ENT History: No Pertinent History Cardiac History: No Pertinent History Respiratory History: No Pertinent History Endocrine Medical History: No Pertinent History Musculoskeletal History: No Pertinent History GI Medical History: Ulcer History: No Pertinent History Psycho-Social History: Depression Male Reproductive Disorders: No Pertinent History Other Medical History: Neuropathy. -history of drug abuse-taking suboxone - Past Surgical History Past Surgical History: Yes Neuro Surgical History: No Pertinent History Cardiac: No Pertinent History Respiratory: No Pertinent History Gastrointestinal: No Pertinent History Genitourinary: No Pertinent History Musculoskeletal: No Pertinent History Male Surgical History: No Pertinent History Other Surgical History: egd colonoscopy - Social History Smoking Status: Current every day smoker How long have you smoked: 22 years Exposure to second hand smoke: Yes Drug Use: none - Social Determinants of Health Will the patient participate in the screening: Declined to provide - Nursing Vital Signs Nursing Vital Signs: Initial Vital Signs Temperature 96.9 F 03/01/25 15:45 Pulse Rate 78 03/01/25 15:45 Respiratory Rate 18 03/01/25 15:45 Blood Pressure 144/81 03/01/25 15:45 O2 Sat by Pulse Oximetry 82 L 03/01/25 15:45 Pain Scale Pain Intensity 1 - Physical Exam General Appearance: no apparent distress Neck Exam: normal inspection, full range of motion Cardiovascular/Respiratory Exam: normal breath sounds, regular rate/rhythm Legs Exam: left leg: pain, soft tissue tenderness, other (7 cm horizontal laceration in the calf with exposed muscle but no obvious laceration), bilateral leg: normal range of motion Knees Exam: bilateral knee: non-tender, normal inspection, normal range of mot ion, no evidence of injury Ankle Exam: bilateral ankle: non-tender, normal inspection, normal range of motion, no evidence of injury Neuro/Tendon Exam: normal sensation, normal motor functions, normal tendon functions Mental Status Exam: alert, oriented x 3, cooperative Skin Exam: normal color SpO2 Interpretation: normal SpO2: 96 O2 Delivery: Room Air Procedures - Laceration/Wound Repair Left Calf Time of Procedure: 16:29 Wound Location: Left, lower leg Wound Length (cm): 7 Wound's Depth, Shape: linear Wound Explored: clean Irrigated: Yes Hibiclens Prep: Yes Anesthesia: 1% lidocaine w/ Epi Volume Anesthetic (ccs): 8 Wound Repaired With: sutures Suture Size/Type: 3-0, ethilon Number of Sutures: 8 (Mattress sutures) Layer Closure?: No Sterile Dressing Applied?: Yes Splint Applied?: No Ordered Tests: Medication Summary Discontinued Medications Generic Name Dose Route Start Last Admin Trade Name Freq PRN Reason Stop Dose Admin Lidocaine/Epinephrine Confirm 03/01/25 16:08 Lidocaine Hcl/Epinephrine 1% 20 Ml Administered 03/01/25 16:09 Dose 1 ml .[email or web address] - Progress Progress: improved Progress Note: 03/01/25 16:29 Differential diagnosis: Laceration, laceration of muscle/tendons contusion 44-year-old up-to-date with tetanus is evaluated in the ER for left calf laceration with a sharp piece of metal while at work. Has no difficulty ambulation, intact distal neurovascular. No active spurting, minimal bruising. Thoroughly cleaned and laceration repaired. With a clean cut, no osseous tenderness, no foreign body. Recommended avoiding exertional activities and outpatient follow-up, recommended wound care. Discussed signs symptoms of worsening needing return to ER which he seems understanding. Stable for discharge. Complexity of problems addressed: Moderate acute Complexity of data reviewed/analyzed: Limited Risk of complication: Low 0 Counseled pt/family regarding: diagnosis, need for follow-up Medical Desision Making - Diagnostic Testing Diagnostic test were ordered, analyzed, and reviewed by me: No - Risk of complications The pt has a mod risk of morbidity or mortality based on: Need for prescription drug management, Need for minor surgical intervention in patient with know risk factors - Departure Departure Disposition: Home Clinical Impression: Leg laceration Condition: Stable Critical Care Time: No Referrals: SKY ABBOTT MD [Primary Care Provider, [facility]] - Follow up with PCP 1 day Instructions: Laceration Repair With Stitches (DC) Additional Instructions: Keep it clean and dry. Exertional activities. Take Tylenol/ibuprofen as needed. Follow-up with primary care for reevaluation. Suture removal in 2 weeks. Return to ER for increasing pain swelling, difficulty ambulation discharge etc. Prescriptions: Ibuprofen 600 mg PO Q6HPRN PRN 10 Days #20 tablet PRN Reason: Pain Cephalexin Mh 500 mg [Keflex 500 mg] 500 mg PO TID #21 cap
[2025-03-01 16:39] VITALS: O2SAT 96
[2025-03-01] MEDS: XYLOCAINE 1%/Epi 1:100000 MDV 20 ML IJ ONE (16:58)
== END 2025-03-01 17:00 | disposition home or self-care (01) ==
LOC: ED 15:37
DX: S81.812A Laceration without foreign body, left lower leg, initial encounter (principal); W45.8XXA Other foreign body or object entering through skin, initial encounter; Y92.69 Other specified industrial and construction area as the place of occurrence of the external cause; Y99.0 Civilian activity done for income or pay; Z79.891 Long term (current) use of opiate analgesic; Z79.84 Long term (current) use of oral hypoglycemic drugs; Z79.899 Other long term (current) drug therapy; Z72.0 Tobacco use